=== PATIENT | female | born 1970 | race Hispanic/Latino ===

== ENCOUNTER 2018-10-04 12:02 | Outpatient (CLI) | payer BC ==
--- NOTE | 2018-10-04 13:19 | RAD ---
RIGHT KNEE FOUR VIEWS: History: 48-year-old female with history of acute pain right knee. FINDINGS/IMPRESSION: No fracture, dislocation, or other acute process. POS: [facility]
== END 2018-10-04 12:03 | disposition home or self-care (01) ==
LOC: BICRAD 12:02
PROVIDERS: ATTEND Family Medicine
DX: M25.561 Pain in right knee (principal)